=== PATIENT | male | born 1975 | race Caucasian/White ===

== ENCOUNTER 2016-09-14 08:36 | Emergency (ER) | payer OTHER ==
[~2016-09-14] VITALS: Ht 175.3 cm; Wt 144.7 kg
[2016-09-14] MEDS ORDERED: ZESTRIL5 MG PO (08:45)
[2016-09-14] MEDS ORDERED: NORVASC5 MG PO (08:45)
[2016-09-14] MEDS ORDERED: GLUCOPHAGE1000 MG PO (08:45)
[2016-09-14] MEDS ORDERED: LOVASTATIN10 MG PO (08:46)
[2016-09-14] MEDS ORDERED: LANTUS100 UNITS/ SUB-Q (08:46)
[2016-09-14] MEDS ORDERED: HUMALOG100 UNIT/1 SUB-Q (08:47)
[2016-09-14] MEDS ORDERED: PATANOL5 ML OD (09:19)
== END 2016-09-14 09:38 | disposition home or self-care (01) ==
LOC: ED 08:36
DX: H01.004 Unspecified blepharitis left upper eyelid (principal); T78.40XA Allergy, unspecified, initial encounter; Z79.4 Long term (current) use of insulin; Z79.899 Other long term (current) drug therapy
CPT/HCPCS: 99283